=== PATIENT | male | born 1945 | race American Indian/Alaskan Native ===

== ENCOUNTER 2022-01-29 13:44 | Outpatient (CLI) | payer MEDICARE ==
--- NOTE | 2022-01-30 08:45 | Magnetic Resonance Report ---
MRI RIGHT SHOULDER WITHOUT CONTRAST INDICATION / CLINICAL INFORMATION: M25.511, rt shoulder pain, limited ROM. TECHNIQUE: Multiplanar, multisequence MR images were obtained. No contrast used. COMPARISON: None available. FINDINGS: SUPRASPINATUS: Complete full-thickness tear of the supraspinatus with retraction of the tendon to the glenohumeral joint and associated moderate muscle atrophy. INFRASPINATUS: Near full-thickness tear of the infraspinatus with a few intact fibers. SUBSCAPULARIS: There is partial thickness tearing of the superior fibers of the subscapularis with as sociated tendinosis. BICEPS TENDON, LONG HEAD: Biceps tendon is not seen within the bicipital groove and avulsed from the superior glenoid. GLENOID LABRUM: Degenerative signal through the superior labrum. There is degenerative tear through t he posterior labrum. ARTICULAR CARTILAGE: There is moderate chondrosis of the glenohumeral joint with mild osteophytosis o ff the humeral head. JOINT SPACE / CAPSULE: No significant abnormality. ACROMION / A.C. JOINT: There is moderate DJD of the acromioclavicular joint with downsloping osteophy lashawn from the distal clavicle and distal acromion encroaching upon the supraspinatus. SUBACROMIAL/SUBDELTOID SPACE: There is fluid within the subacromial/subdeltoid bursa. BONES: No significant bone marrow edema. No fracture. No osseous lesion. SOFT TISSUES: No significant abnormality. ADDITIONAL FINDINGS: None. IMPRESSION: 1. Complete full-thickness tear of the supraspinatus with tendon retraction to the glenohumeral joint and moderate muscular atrophy. 2. Near full-thickness tear of the infraspinatus with few intact fibers. No significant muscle atroph y or tendon retraction. 3. Partial-thickness tearing of superior fibers subscapularis. 4. 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 5. Nonvisualization of the long head of the biceps tendon suggesting possible tendon avulsion from th e superior glenoid. Report dictated by: Gurdeep Esquivel DO Report dictated on: 01/29/2022 2:13 PM I have reviewed the images, agree with this report, and edited this report as needed. Signer Name: Ramez Banks MD Signed: 01/30/2022 8:41 AM Workstation Name: [id number]
== END 2022-01-29 13:45 | disposition home or self-care (01) ==
LOC: MRI 13:44
PROVIDERS: ATTEND Orthopaedic Surgery
DX: S46.011A Strain of muscle(s) and tendon(s) of the rotator cuff of right shoulder, initial encounter (principal); M25.711 Osteophyte, right shoulder; M19.011 Primary osteoarthritis, right shoulder; X58.XXXA Exposure to other specified factors, initial encounter; Y93.89 Activity, other specified; Y92.89 Other specified places as the place of occurrence of the external cause; Y99.8 Other external cause status